=== PATIENT | female | born 1960 | race Caucasian/White ===

== ENCOUNTER → 2022-05-07 | Outpatient (CLI) | payer MEDICARE ==
[2022-05-07 11:00] LABS: PLATELET COUNT, AUTOMATED 222 10^3/uL (150-450)
[2022-05-07 11:10] LABS: INR 0.88; PROTHROMBIN TIME 12.1 SECONDS (12.5-14.5)
[2022-05-07 11:11] LABS: PARTIAL THROMBOPLASTIN TIME 26.7 SECONDS (24.8-34.2)
[2022-05-07 11:23] LABS: COLLAGEN EPINEPHRINE 103 SECONDS (74-162)
== END ==
LOC: M LAB 10:27
PROVIDERS: ATTEND Physician Assistant
DX: Z01.812 Encounter for preprocedural laboratory examination (principal)

== ENCOUNTER 2025-01-04 11:49 | Observation (INO) | payer MEDICARE ==
[~2025-01-04] VITALS: Ht 157.5 cm; Wt 80.6 kg
[~2025-01-04 11:49] MED LIST: CYAN500T14 PO; ESOM1CAP20 PO; FAMO20TA5 PO; FLON1SPR; FLUT12AE3 IH; MONT10TA97 PO; PROA1AER2 INH; PSEU30TA87 PO; ROSU10TA90 PO; TOPI-21 PO; VITA100093 PO
[2025-01-04] MEDS ORDERED: ONDANSETRON 4MG/2ML VIAL As Ordered ONE (12:01)
[2025-01-04] MEDS ORDERED: dexAMETHasone 4 MG/ML 1 ML VIAL As Ordered ONE (12:01)
[2025-01-04] MEDS ORDERED: MIDAZOLAM INJ 2 MG/2 ML VIAL As Ordered ONE (12:01)
[2025-01-04] MEDS ORDERED: LIDOCAINE 2% 100 MG/5 ML SDV (FOR ANES.) As Ordered ONE (12:01)
[2025-01-04] MEDS ORDERED: dexmedeTOMIDine (4 MCG/ML) 200 MCG/50 ML BTL As Ordered ONE (12:07)
[2025-01-04] MEDS ORDERED: ADVA1AER8 INH (12:41)
[2025-01-04] MEDS ORDERED: FAMO40TA3 PO (12:41)
[2025-01-04] MEDS ORDERED: VENTAER INH (12:41)
[2025-01-04] MEDS ORDERED: HOME MED LIST COMPLETE! XX SCH (12:45)
[2025-01-04] MEDS ORDERED: HYDROmorphone HCL 2 MG/ML 1 ML VIAL As Ordered ONE (13:09)
[2025-01-04] MEDS: LR 1,000 ML IV SCH ×2 (13:25→22:23)
[2025-01-04] MEDS: IPRATROPIUM 0.5 MG/ALBUTEROL 2.5 MG INH SOL UD 3 ML NEB ONE (13:25)
[2025-01-04] MEDS: ceFAZolin SOD 2 GM IV ONCE IV ONE (14:55)
[2025-01-04] MEDS: HEPARIN SOD 5000 UNITS/ML 1 ML VIAL/SYRINGE SQ ONE (14:58)
[2025-01-04] MEDS: GENTAMICIN SULF 80 MG/2 ML VIAL As Ordered ONE (15:23)
[2025-01-04] MEDS ORDERED: ACETAMINOPHEN 1000MG/100ML IV BAG As Ordered ONE (15:27)
[2025-01-04] MEDS ORDERED: SUGAMMADEX SODIUM 200 MG/2 ML VIAL As Ordered ONE (15:27)
[2025-01-04] MEDS ORDERED: ROCURONIUM BROMIDE 50MG/5ML VIAL As Ordered ONE (15:27)
[2025-01-04] MEDS ORDERED: LACRILUBE (AKWA TEARS) OPHTH OINT 3.5 GM As Ordered ONE (15:38)
[2025-01-04] MEDS ORDERED: MORPHINE 4 MG/ML 1 ML VIAL IV PRN (18:00)
[2025-01-04] MEDS ORDERED: ALBUTEROL 90 MCG/ACT 8 GM HFA INHALER INH PRN (18:30)
[2025-01-04] MEDS ORDERED: traMADol 50 MG TAB PO PRN (18:30)
[2025-01-04] MEDS ORDERED: ACETAMINOPHEN 325 MG TAB PO PRN (18:30)
[2025-01-04] MEDS: HYDROMORPHONE HCL 0.5 MG/0.5 ML SYRINGE IV PRN (18:38)
[2025-01-04] MEDS: ONDANSETRON 4MG/2ML VIAL IV PRN ×2 (19:10→22:37)
[2025-01-04] MEDS: ADVAIR HFA 45/21 MCG INHALER INH SCH (20:00)
[2025-01-04 20:12] VITALS: BP 130/60; TEMP 97.2; O2SAT 97
[2025-01-04 20:41] VITALS: BP 131/62; TEMP 97.3; O2SAT 100
[2025-01-04 21:45] VITALS: BP 127/59; TEMP 97; O2SAT 98
[2025-01-04] MEDS: ceFAZolin SODIUM 2 GM in DEXTROSE 5% (D5W) ADV/MINI-BAG 50 ML IV SCH (22:23)
[2025-01-04] MEDS: ROSUVASTATIN 10 MG TAB PO SCH (22:27)
[2025-01-04] MEDS: MONTELUKAST 10 MG TAB PO SCH (22:28)
[2025-01-04] MEDS: FAMOTIDINE 20 MG TAB PO SCH (22:28)
[2025-01-04] MEDS: TOPIRAMATE 25 MG TAB PO SCH (22:29)
[2025-01-04] MEDS: PERCOCET 5MG/325MG TAB PO PRN (22:37)
[2025-01-04 22:54] VITALS: BP 133/65; TEMP 96.8; O2SAT 100
[2025-01-04 23:48] VITALS: BP 133/60; TEMP 97.1; O2SAT 100
[2025-01-05 00:45] VITALS: BP 132/58; TEMP 97.5; O2SAT 98
[2025-01-05 06:01] VITALS: BP 110/56; TEMP 97.6; O2SAT 100
[2025-01-05] MEDS: VITAMIN D 1,000 INTERNATIONAL UNITS TABLET PO SCH (08:08)
[2025-01-05] MEDS: CYANOCOBALAMIN 500 MCG TAB PO SCH (08:09)
[2025-01-05] MEDS: PSEUDOEPHEDRINE 30 MG TAB PO SCH (08:12)
[2025-01-05] MEDS ORDERED: PERCOCET PO (10:20)
[2025-01-05] MEDS ORDERED: ONDA-83 PO (10:20)
== END 2025-01-05 12:38 | disposition home or self-care (01) ==
LOC: M SDC 11:49 → M MS5PR 19:45
PROVIDERS: ADMIT Plastic Surgery Surgery of the Hand; ATTEND Plastic Surgery Surgery of the Hand
DX: N62 Hypertrophy of breast (principal); E78.5 Hyperlipidemia, unspecified; J45.909 Unspecified asthma, uncomplicated; F12.10 Cannabis abuse, uncomplicated; Z88.0 Allergy status to penicillin; Z91.041 Radiographic dye allergy status; Z79.899 Other long term (current) drug therapy; Z79.51 Long term (current) use of inhaled steroids
CPT/HCPCS: 19318; 88305; 94640; 96361; 96365; 96366; 96375; 96376; G0378; J0131; J0665; J0666; J0688; J1100; J1171; J1580; J2250; J2405; J2765; J3010